=== PATIENT | female | born 1990 | race African-American/Black ===

== ENCOUNTER 2017-01-27 17:55 | Emergency (ER) | payer SELFPAY ==
[2017-01-27 18:52] LABS: #Lymphocytes 1.6 thou/uL (1.20-3.40); #Monocytes 0.3 thou/uL (0.11-0.59); #Neutrophils 3.5 thou/uL (1.40-6.50); %Basophils 0.4 % (0.0-1.0); %Eosinophils 0.6 % (0.0-10.0); %Lymphocytes 29.1 % (21.0-51.0); %Monocytes 5.6 % (0.0-10.0); Hematocrit 38.2 % (36.0-47.0); Mean Platelet Volume 8.3 fL (7.4-10.4); Red Blood Cell (RBC) Count 4.03 mill/uL (4.20-5.40); White Blood Cell (WBC) Count 5.4 thou/uL (4.8-10.8)
[2017-01-27 18:53] LABS: Bilirubin Negative (Negative); Blood, Urine Negative (Negative); Glucose, Urine (Dipstick) Negative (Negative); Ketone, Urine Trace mg/dL (Negative); Nitrite Negative (Negative); Protein, Urine (Dipstick) Negative (Neg-Trace)
[2017-01-27 18:58] LABS: Bacteria/HPF 2+ HPF (None Seen); Hyaline Casts/LPF 0-3 HYALINE CAST LPF (0-3 Hyaline); RBC/HPF 0-3 HPF (0-3)
[2017-01-27 19:13] LABS: ALT (SGPT) 7 U/L (8-55); AST (SGOT) 13 U/L (5-34); Alkaline Phosphatase 49 U/L (40-150); Anion Gap 12 mmol/L (10-20); BUN (Urea Nitrogen) 11 mg/dL (7.0-18.7); Bilirubin, Total 0.4 mg/dL (0.2-1.2); Calc. Creatinine Clearance 0 mL/min (70-130); Calcium 9.5 mg/dL (7.8-10.44); Carbon Dioxide 22 mmol/L (22-29); Chloride 102 mmol/L (98-107); Estimated GFR-MDRD 82; Globulin 4.3 g/dL (2.4-3.5); Lipase 12 U/L (8-78); Protein, Total 8.2 g/dL (6.0-8.3)
[2017-01-27] MEDS ORDERED: Metoclopramide HCl 10 MG/2 ML VIAL ONE (21:26)
--- NOTE | 2017-01-27 22:23 | ULT ---
TRANSVAGINAL PELVIC ULTRASOUND WITH DOPPLER AND COLOR FLOW: Clinical history: Low abdominal pain. FINDINGS: There is evidence of an intrauterine gestation with gestational sac, yolk sac, and small pole. By sonographic imaging this corresponds to an approximately 6 week gestation. Due to early state, f etal cardiac activity cannot be confirmed. There is slight heterogeneity adjacent to the gestational sac which may relate subchorionic hemorrhage. There is a dominant cyst in the left ovary measuring between 2-3 cm. IMPRESSION: Evidence to indicate an early intrauterine gestation. cardiac activity cannot be confirmed. Th ere is suggestion of a small amount of subchorionic hemorrhage. Therefore, recommend continued clini cassia follow up with serial Beta HCG evaluation as well as short term imaging follow up. Code T POS: CHANTALE
== END 2017-01-27 21:34 | disposition home or self-care (01) ==
LOC: ERS 17:55
DX: O21.9 Vomiting of pregnancy, unspecified (principal); O99.89 Other specified diseases and conditions complicating pregnancy, childbirth and the puerperium; R10.30 Lower abdominal pain, unspecified
CPT/HCPCS: 36415; 76856; 80053; 81003; 81015; 83690; 84702; 84703; 85025; J2765